=== PATIENT | male | born 1970 | race Caucasian/White ===

== ENCOUNTER 2016-08-14 23:26 | Emergency (ER) | payer BC ==
[2016-08-14 23:59] VITALS: BP 145/84
--- NOTE | 2016-08-15 08:14 | RAD ---
Indication: Crush injury, left hand with swelling and pain. 3 views of left ring finger demonstrates comminuted fracture of the middle phalanx of the ring finger on the left. Minimal distraction is noted. No significant displacement is noted. IMPRESSION: Comminuted fracture middle phalanx fourth digit. No significant displacement is noted.
--- NOTE | 2016-08-15 14:34 | ED ---
Upper Extremity Pain - HPI Summary HPI Summary: Patient presents to ED after a crush injury from an elliptical machine to the left ring finger. finger is swollen and painful and wedding ring is still on. denies other injuries. endorses numbness and tingling. patient was able to flex and extend finger prior to arrival, but stated it began to swell to much and now is unable to move the digit. pulses intact bilaterally. blood flow impaired d/t wedding ring. - History of Current Complaint Chief Complaint: EDExtremityUpper Stated Complaint: LT RING FINGER INJURY Time Seen by Provider: 08/15/16 01:05 Hx Obtained From: Patient Mechanism Of Injury: Blunt Trauma Onset/Duration: Started Hours Ago Timing: Constant Severity Initially: Moderate Severity Currently: Severe Pain Location: Finger Character: Throbbing Aggravating Factor(s): Movement Alleviating Factor(s): Rest Associated Signs & Symptoms: Positive: Numbness/Tingling Related History: Dominant Hand Right - Risk Factors Non-Orthopedic Risk Factor: Negative DVT Risk Factors: Negative Septic Arthritis Risk Factor: Negative Compartment Syndrome Risk Factors: Pain, Paresthesias - Allergies/Home Medications Allergies/Adverse Reactions: Allergies Allergy/AdvReac Type Severity Reaction Status Date / Time No Known Allergies Allergy Verified 08/14/16 23:56 PMH/Surg Hx/FS Hx/Imm Hx Previously Healthy: Yes Infectious Disease History: No Infectious Disease History: Denies: Traveled Outside the [place] in Last 30 Days - Social History Occupation: Employed Full-time Lives: With Family Alcohol Use: None Hx Substance Use: No Substance Use Type: Reports: None Hx Tobacco Use: Yes Smoking Status (MU): Former Smoker Review of Systems Constitutional: Negative Eyes: Negative Cardiovascular: Negative Respiratory: Negative Genitourinary: Negative Positive: Arthralgia - fourth finger of left hand, Myalgia Positive: Other - bruising, swelling Psychological: Normal All Other Systems Reviewed And Are Negative: Yes Physical Exam Triage Information Reviewed: Yes Vital Signs On Initial Exam: Initial Vitals Temp Pulse Resp BP Pulse Ox 99.2 F 78 18 145/84 97 08/14/16 23:54 08/14/16 23:54 08/14/16 23:54 08/14/16 23:54 08/14/16 23:54 Vital Signs Reviewed: Yes Appearance: Positive: Well-Appearing, No Pain Distress, Well-Nourished Skin: Positive: Warm, Skin Color Reflects Adequate Perfusion, Other - swelling over fourth finger of left hand with ecchymosis and skin avulsion of dorsum of finger. Head/Face: Positive: Normal Head/Face Inspection Eyes: Positive: Normal, CHRISTOPHER, Conjunctiva Clear Neck: Positive: No Lymphadenopathy Respiratory/Lung Sounds: Positive: Clear to Auscultation, Breath Sounds Present Cardiovascular: Positive: Normal Musculoskeletal: Positive: Limited @ - flexion and extension of 4th digit of l hand, Pain @ - 4th digit of left hand Neurological: Positive: Normal, Sensory/Motor Intact Psychiatric: Positive: Normal AVPU Assessment: Alert Diagnostics - Vital Signs Vital Signs Temp Pulse Resp BP Pulse Ox 08/14/16 23:54 99.2 F 78 18 145/84 97 - Laboratory Lab Statement: Any lab studies that have been ordered have been reviewed, and results considered in the medical decision making process. - Radiology No standard instances Xray Interpretation: Positive (See Comments) Radiology Interpretation Completed By: Radiologist - IMPRESSION: Comminuted fracture middle phalanx fourth digit. No significant displacement is noted. Course/Dx - Course Course Of Treatment: RN removed wedding ring using ring remover. Patient tolerated well. xray shows Comminuted fracture middle phalanx fourth digit. No significant displacement is noted. cleaned wound well and determined there was no open areas in the skin indicating an open fracture, however small skin avulsion on dorsum of finger was seen. Splinted finger and wrapped for patient comfort. Instructions given to patient for care. Follow up with Dr. Luna next week. Patient agreeable to plan. Upon discharge, numbness and swelling had subsided and good blood flow and cap refill was appreciated. - Diagnoses Differential Diagnosis/HQI/PQRI: Positive: Contusion, Fracture (Closed) Provider Diagnoses: Fracture of middle phalanx of finger of left hand Discharge - Discharge Plan Condition: Stable Disposition: HOME Patient Education Materials: Finger Fracture (ED) Referrals: Solomon Sanchez II, MD [Primary Care Provider] - John Luna MD [Medical Doctor] - Additional Instructions: Elevate, ice. Ibuprofen 600mg three times daily with meals. Continue with splint until you follow up with ortho - unless showering or washing hands. Do not get splint wet. If you begin to lose feeling in the finger tips or notice in color changes in the finger, come back to ED. Images - Images Hands: 1 - bruising, swelling and small skin avulsion of dorsum of left ring finger
== END 2016-08-15 03:27 | disposition home or self-care (01) ==
LOC: ED 23:26
DX: S62.655A Nondisplaced fracture of middle phalanx of left ring finger, initial encounter for closed fracture (principal); W23.0XXA Caught, crushed, jammed, or pinched between moving objects, initial encounter; Y93.9 Activity, unspecified; Y92.89 Other specified places as the place of occurrence of the external cause
CPT/HCPCS: 73140; 99281

== ENCOUNTER 2018-11-01 17:11 | Emergency (ER) | payer BC ==
--- NOTE | 2018-11-01 19:08 | ED ---
Hypertension - HPI Summary HPI Summary: A 48 y/o M presents to ED with ongoing HTN onset 0800 this date. Patient went to work when he noticed some blurry vision and became tremulous. He states he felt he wasn't himself. He saw the nurse and PA at work and his BP was 178/110. It was checked twice more over four hours and remained elevated. He saw his PCP for a check-up two weeks ago and had elevated BP. His PCP doubles his Lotrel at that time. He saw an urologist yesterday, and took Flomax and Viagra for the first time last night at 2300 and 0000 respectively. He took his AM medications today per usual. Associated sx: worsening TOMAS, mild abd pain which has resolved. - History of Current Complaint Chief Complaint: EDHypertension Stated Complaint: HIGH BP/BLURRY VISION/HEADACHE PER PT Time Seen by Provider: 11/01/18 18:56 Hx Obtained From: Patient Onset/Duration: Started Hours Ago, Atraumatic, Still Present Timing: Constant Aggravating Factor(s): Nothing Alleviating Factor(s): Nothing Associated Signs & Symptoms: Vision Changes - blurriness, Headaches, Other: - pos: tremulous, mild abd pain (resolved) - Allergies/Home Medications Allergies/Adverse Reactions: Allergies Allergy/AdvReac Type Severity Reaction Status Date / Time No Known Allergies Allergy Verified 08/14/16 23:56 Home Medications: Home Medications Atorvastatin* 10 mg PO DAILY 11/01/18 [History Confirmed 11/01/18] Omeprazole 1 cap PO DAILY 11/01/18 [History Confirmed 11/01/18] Sildenafil Citrate [Viagra] 1 tab PO DAILY PRN 11/01/18 [History Confirmed 11/01] Tamsulosin HCl [Flomax] 1 cap PO DAILY 11/01/18 [History Confirmed 11/01/18] amLODIPine/Benazepril 10(NF [Lotrel 03/25(NF)] 1 tab PO DAILY 11/01/18 [ History Confirmed 11/01/18] PMH/Surg Hx/FS Hx/Imm Hx Previously Healthy: No Cardiovascular History: Reports: Hx Hypertension Respiratory History: Reports: Hx Sleep Apnea Sensory History: Reports: Hx Contacts or Glasses Opthamlomology History: Reports: Hx Contacts or Glasses Neurological History: Denies: Hx CVA, Hx Transient Ischemic Attacks (TIA) - Surgical History Surgery Procedure, Year, and Place: vasectomy, testicular cyst Infectious Disease History: No Infectious Disease History: Denies: Traveled Outside the [place] in Last 30 Days - Family History Known Family History: Positive: Hypertension Family History: stroke - Social History Occupation: Employed Full-time Lives: With Family Alcohol Use: Occasionally Hx Substance Use: No Substance Use Type: Reports: None Hx Tobacco Use: Yes Smoking Status (MU): Former Smoker Review of Systems Positive: Other - pos: tremulous Positive: Blurred Vision Positive: Other - elevated BP Positive: Abdominal Pain - resolved Positive: Headache All Other Systems Reviewed And Are Negative: Yes Physical Exam - Summary Physical Exam Summary: Appearance: Well-appearing, Well-nourished, lying in bed comfortably Skin: Warm, dry, no obvious rash Eyes: sclera anicteric, no conjunctival pallor. Fundoscopic exam shows sharp disc margins. ENT: mucous membranes moist, pharynx appears normal Neck: Supple, nontender Respiratory: Clear to auscultation, no signs of respiratory distress Cardiovascular: Normal S1, S2. No murmurs. Normal distal pulses in tibial and radial bilaterally. Elevated BP noted. Abdomen: Soft, nontender, normal active bowel sounds present Musculoskeletal: Normal, Strength/ROM Intact Neurological: A&Ox3, awake and alert, mentation is normal, speech is fluent and appropriate Psychiatric: affect is normal, does not appear anxious or depressed Triage Information Reviewed: Yes Vital Signs On Initial Exam: Initial Vitals Temp Pulse Resp BP Pulse Ox 97.9 F 97 16 181/122 97 11/01/18 17:13 11/01/18 17:13 11/01/18 17:13 11/01/18 17:13 11/01/18 17:13 Vital Signs Reviewed: Yes - Lillie Coma Scale Best Eye Response: 4 - Spontaneous Best Motor Response: 6 - Obeys Commands Best Verbal Response: 5 - Oriented Coma Scale Total: 15 Diagnostics - Vital Signs Vital Signs Temp Pulse Resp BP Pulse Ox 11/01/18 18:18 76 14 177/104 97 11/01/18 18:00 79 13 97 11/01/18 17:48 173/106 11/01/18 17:13 97.9 F 97 16 181/122 97 - Laboratory Result Diagrams: 11/01/18 19:40 11/01/18 19:40 Lab Statement: Any lab studies that have been ordered have been reviewed, and results considered in the medical decision making process. - CT Brain CT CT Interpretation Completed By: Radiologist Summary of CT Findings: IMPRESSION: 1. No acute intracranial abnormality. 2. Mild chronic small vessel ischemic disease. ED provider has reviewed this report. - EKG 1718 Cardiac Rate: NL - 95 bpm EKG Rhythm: Sinus Rhythm Summary of EKG Findings: NSR at 95 BPM, P waves, QRS complex, and T waves are within normal limits, T waves and intervals are normal, no ischemic changes. No STEMI. Re-Evaluation - Re-Evaluation 1 Re-Evaluation Time: 21:18 Change: Improved - vision improved Comment: Discussing results with patient. Pt still has TOMAS and BP remains elevated, but his blurred vision has resolved. 2 Re-Evaluation Time: 23:22 Change: Improved Comment: Patient feeling improved, will discharge home. He is agreeable to this plan. Hypertension Course/Dx - Course Course Of Treatment: Pt is a 48 y/o M presenting with ongoing HTN onset 0800. He went to work and had blurry vision, TOMAS and became tremulous. His BP at work was 178/110. His PCP doubled his Lotrel approx 2 weeks ago, and patient took Flomax and Viagra last night for the first time. He's concerned about medication interactions. Lab work is without significant abnormality. EKG shows NSR at 95 BPM, P waves, QRS complex, and T waves are within normal limits , T waves and intervals are normal, no ischemic changes, no STEMI. Brain CT is negative for acute findings. UA results show 2+ WBC, 2+ leukocyte esterase, squamous epithelia present. Will discharge patient home to follow up with PCP tomorrow. - Diagnoses Provider Diagnoses: Hypertensive urgency Discharge - Sign-Out/Discharge Documenting (check all that apply): Patient Departure - D/C Patient Received Moderate/Deep Sedation with Procedure: No - Discharge Plan Condition: Improved Disposition: HOME Patient Education Materials: Hypertensive Crisis (ED) Referrals: Solomon Sanchez II, MD [Primary Care Provider] - 1 Day - Billing Disposition and Condition Condition: IMPROVED Disposition: Home - Attestation Statements Document Initiated by Scribe: Yes Documenting Scribe: Everardo Limon Provider For Whom Scribe is Documenting (Include Credential): Dr. Froylan Larios MD Scribe Attestation: I, Everardo Limon, scribed for Dr. Froylan Larios MD on 11/02/18 at 0308. Scribe Documentation Reviewed: Yes Provider Attestation: The documentation as recorded by the scribe, Everardo Limon accurately reflects the service I personally performed and the decisions made by me, Dr. Froylan Larios MD Status of Scribe Document: Viewed
[2018-11-01] MEDS ORDERED: Metoprolol Tartrate IV* 1 MG/ML 5 ML VIAL IV ONE (19:10)
[2018-11-01 19:46] LABS: ABS Basophils 0.1 10^3/ul (0-0.2); ABS Eosinophils 0.1 10^3/ul (0-0.6); ABS Lymphocytes 1.4 10^3/ul (1.0-4.8); ABS Neutrophils 5.8 10^3/ul (1.5-7.7); Eosinophil % 1.4 %; Hematocrit 45 % (42-52); Hemoglobin 15.4 g/dL (14.0-18.0); Lymphocyte % 17.2 %; Mean Corpuscular HGB Conc 34 g/dL (31-36); Mean Corpuscular Hemoglobin 31 pg (27-31); Mean Corpuscular Volume 91 fL (80-94); Mean Platelet Volume 7.1 fL (7.4-10.4); Nucleated Red Blood Cells % 0.1; Platelet Count 241 10^3/uL (150-450); Red Blood Count 4.91 10^6 /uL (4.18-5.48); Red Cell Distribution Width 14 % (10.5-15); White Blood Count 8.4 10^3/uL (3.5-10.8)
[2018-11-01 20:09] LABS: Albumin 4.4 g/dL (3.2-5.2); Albumin/Globulin Ratio 1.5 (1-3); BUN/Creatinine Ratio 22.2 (8-20); Calcium 9.6 mg/dL (8.6-10.3); EGFR African American 108.1 (>60); EGFR Non-African American 89.3 (>60); Globulin 2.9 g/dL (2-4); Potassium 3.8 mmol/L (3.5-5.0); Total Bilirubin 0.7 mg/dL (0.2-1.0); Total Protein 7.3 g/dL (6.4-8.9)
[2018-11-01] MEDS ORDERED: Metoprolol Tartrate TAB* 50 mg PO ONE ×2 (20:24→21:22)
[2018-11-01] MEDS ORDERED: Ibuprofen TAB* 400 MG PO ONE (21:22)
[2018-11-01 22:59] LABS: Urine Appearance Clear; Urine Bacteria Absent (Absent); Urine Bilirubin Negative (Negative); Urine Blood Negative (Negative); Urine Color Yellow; Urine Glucose Negative (Negative); Urine Ketones Negative (Negative); Urine Nitrite Negative (Negative); Urine Protein Negative (Negative); Urine Red Blood Cell Trace(0-2/hpf) (Absent); Urine Specific Gravity 1.016 (1.010-1.030); Urine Squamous Epithelial Cell Present (Absent); Urine Urobilinogen Negative (Negative); Urine White Blood Cell 2+(11-20/hpf) (Absent)
[2018-11-01 23:22] VITALS: BP 136/82
== END 2018-11-01 23:31 | disposition home or self-care (01) ==
LOC: ED 17:11
DX: I16.0 Hypertensive urgency (principal); I99.8 Other disorder of circulatory system; R94.31 Abnormal electrocardiogram [ECG] [EKG]; G47.30 Sleep apnea, unspecified; Z87.891 Personal history of nicotine dependence
CPT/HCPCS: 36415; 70450; 80053; 81003; 81015; 85025; 87086; 93005; 96374; 99284; A9270-GY; J3490